=== PATIENT | male | born 2000 | race Two or more races ===

== ENCOUNTER 2021-07-02 17:48 | Emergency (ER) | payer OTHER ==
[~2021-07-02] VITALS: Ht 172.7 cm; Wt 75.0 kg
[2021-07-02 17:49] VITALS: BP 123/82
--- NOTE | 2021-07-02 18:12 | NUR ---
PT'S MOTHER WAS CALLED AT PT'S REQUEST, WANTED HIS MOTHER TO KNOW HE WAS IN THE HOSPITAL. MOTHER WAS NOTIFIED THAT PT [facility] AND IS STABLE WITH MINOR INJURIES. MOTHER ASKED TO SPEAK WITH PT, PHONE WAS PLACED IN PT'S ROOM AND CALL WAS TRANSFERED.
--- NOTE | 2021-07-02 18:43 | NUR ---
PT ORIENTED TO SURROUNDINGS AND IN BED. NO ACUTE DISTRESS NOTED.
--- NOTE | 2021-07-02 19:25 | NUR ---
PT MOTHER CALLED TO INFORM US THAT SHE IS ON HER WAY AND FOR HIM NOT TO BE RELEASED TO THE STREETS BECAUSE HE IS ONLY 20
== END 2021-07-03 | disposition home or self-care (01) ==
LOC: ER 17:49
DX: S80.12XA Contusion of left lower leg, initial encounter (principal); F10.129 Alcohol abuse with intoxication, unspecified; W18.39XA Other fall on same level, initial encounter; Y93.89 Activity, other specified; Y92.89 Other specified places as the place of occurrence of the external cause; Y99.8 Other external cause status; Y90.9 Presence of alcohol in blood, level not specified
CPT/HCPCS: 36415; 73600; 80320; 99284